=== PATIENT | female | born 1980 ===

== ENCOUNTER 2016-09-24 15:14 | Emergency (ER) | payer OTHER ==
[~2016-09-24] VITALS: Ht 154.9 cm; Wt 76.1 kg
[2016-09-24 15:18] VITALS: Ht 154.9 cm; Wt 76.1 kg
[2016-09-24 17:05] LABS: URINE BLOOD (Dip) POC 2+ (NEGATIVE)
--- NOTE | 2016-09-24 18:09 | ERD ---
ER Documentation Chief Complaint Date/Time DATE: 09/24/16 TIME: 18:04 Chief Complaint VAGINAL DISCHARGE,SMELLY X 3 WEEKS, PELVIC PAIN HPI This is a 36-year-old female who presents to the emergency department today complaining of vaginal discharge that is foul-smelling. The past 3 weeks as well as pelvic pain. Patient states she has not been sexually active because she has pain with intercourse. She has not taken any medication. States she tried to get referral to an DIRECTOR OF LEARNING but her insurance has changed and she has not been able to see one. States she has had intermittent vaginal bleeding. Denies any fevers or chills. ROS All systems reviewed and are negative except as per history of present illness. Medications Home Meds Active Scripts Acetaminophen* (Tylophen*) 500 Mg Capsule, 1 CAP PO Q6H Y for PAIN AND OR ELEVATED TEMP, #30 CAP Prov:DIDIER PATELC 09/24/16 Ibuprofen* (Motrin*) 600 Mg Tab, 600 MG PO Q6, #30 TAB Prov:DIDIER PATEL PA-C 09/24/16 Metronidazole* (Flagyl*) 500 Mg Tablet, 500 MG PO BID for 7 Days, TAB Prov:DIDIER PATEL PA-C 09/24/16 Cephalexin* (Keflex*) 500 Mg Capsule, 500 MG PO QID for 7 Days, CAP Prov:DIDIER PATEL PA-C 09/24/16 Allergies Allergies: Coded Allergies: No Known Allergy (Unverified , 09/24/16) PMhx/Soc Medical and Surgical Hx: pt denies Medical Hx, pt denies Surgical Hx Hx Alcohol Use: No Hx Substance Use: No Hx Tobacco Use: No Physical Exam Vitals Vital Signs Date Time Temp Pulse Resp B/P Pulse Ox O2 Delivery O2 Flow Rate FiO2 09/24/16 15:18 98.1 91 20 101/56 99 Physical Exam Const: NAD Head: Atraumatic Eyes: Normal Conjunctiva ENT: Normal External Ears, Nose and Mouth. Neck: Full range of motion..~ No meningismus. Resp: Clear to auscultation bilaterally Cardio: Regular rate and rhythm, no murmurs Abd: Soft, suprapubic tenderness non distended. Normal bowel sounds. No right lower quadrant pain. No tenderness at McBurney's. : Vaginal speculum exam shows evidence of discharge. No gross bleeding. No cervical motion tenderness. No vesicles or masses or lesions Skin: No petechiae or rashes Back: No midline or flank tenderness Ext: No cyanosis, or edema Neur: Awake and alert Psych: Normal Mood and Affect Results 24 hrs Laboratory Tests Test 09/24/16 17:05 Bedside Urine Blood 2+ Bedside Urine Glucose (UA) Negative Bedside Urine Ketones (LAB) Negative Bedside Urine Leukocyte Esterase (L 2+ Bedside Urine Nitrite (LAB) Negative Bedside Urine Protein (LAB) Negative Bedside Urine pH (LAB) 7.0 DIAGNOSTIC IMAGING REPORT Patient: MER ESCOBAR : 1980 Age: 36 Sex: F MR #: [id number] DOS: 09/24/16 0000 Ordering MD: DIDIER PATEL PA-C Location: [facility] Room/Bed: PROCEDURE: US Pelvis. CLINICAL INDICATION: Pelvic pain. TECHNIQUE: The pelvis was evaluated with transabdominal sonography in the axial and sagittal planes. COMPARISON: No prior study is available for comparison. FINDINGS: Uterus: 8.8 x 4.4 x 5.3 cm. Endometrium: 9.6 mm. Right ovary: 4.6 x 2.8 x 2.8 cm. Left ovary: 3.1 x 2.2 x 2.7 cm. Uterine masses: None. Ovarian masses: None. Color Doppler and pulsed Doppler sonography demonstrate normal flow to the ovaries. Other pelvic masses: None. Free fluid: None. IMPRESSION: 1. Normal pelvic ultrasound. RPTAT: QQ .Alvarez Rich MD, MD Date Time Electronically viewed and signed by .Alvarez Rich MD, on 09/24/2016 18:34 .R/ CC: DIDIER PATEL PA-C RUN DATE: 09/24/16 [facility] PAGE 1 RUN TIME: [id number] [place] [address] Bong Swartz Director KHANH#: [id number] Name: MER ESCOBAR Age/Sex: 36/F Attend Dr: ESTELLE LEIJA MD Acct: [id number] MR# : [id number] : 1980 Location: [facility] Admit: 09/24/16 Specimen: [id number] Status: Complete Anika: 09/24/16 Rcvd: 09/24 Source: VAGINAL DI Sp Descrip: Procedure Result Microbiology WET MOUNT Final WHITE BLOOD CELLS 3+ RED BLOOD CELLS RARE BACTERIA 3+ EPITHELIAL CELLS 3+ MYCELIA NONE SEEN YEAST NONE SEEN HYPHAE NONE SEEN CLUE CELLS CLUE CELLS SEEN MOTILE TRICHOMONAS NO MOTILE TRICHOMONAS SEEN ................................................................................ ............ Flags: Critical Hi = *H Critical Lo = *L Microbiology Abnormal = * Abnormal Hi = H Abnormal Lo = L Blood Bank Abnormal = * Susceptability Flags: S = Sensitive R = Resistant I = Intermediate END OF REPORT Procedures/MDM This 36-year-old female who presents to the emergency department today complaint of pelvic pain and foul-smelling vaginal discharge and vaginal bleeding. On physical exam patient had some suprapubic tenderness and therefore did obtain a UA and urine . Also obtained an ultrasound and did a pelvic exam. Patient refused laboratory work UA shows 2+ leukocyte esterase and 2+ blood. Negative nitrites. I will treat the patient per urinary tract infection. test is negative. Low suspicion for ectopic , tubo-ovarian abscess, ovarian torsion. Ultrasound shows normal pelvic ultrasound. There is no free fluid. There is no ovarian or uterine masses. I did do a wet mount patient's pelvic exam that shows clue cells. No evidence of Trichomonas. She'll be given a perception for Keflex and metronidazole treat urinary tract infection and BV. I cannont say for certain why patient has some intermittent vaginal bleeding. Explained this to the patient and instructed her to follow up with her DIRECTOR OF LEARNING. Her ultrasound was negative. Patient refused laboratory work. I explained this to her. She is afebrile and otherwise well appearing. Low suspicion for PID however I did send urine for gonorrhea and chlamydia. Patient has no right lower quadrant pain and no left lower quadrant pain and I have low suspicion for any acute surgical abdomen. At this time the patient is stable for discharge and outpatient management. Patient should follow up with their PCP in the next 1-2 days. They may return to the emergency department sooner for any persistent or worsening of symptoms. Patient understood and agreed with the plan. Departure Diagnosis: Primary Impression: Bacterial vaginosis Additional Impression: UTI (urinary tract infection) Urinary tract infection type: site unspecified Hematuria presence: with hematuria Qualified Code: N39.0 - Urinary tract infection with hematuria, site unspecified Condition: DIDIER Mays PA-C Sep 24, 2016 18:09
--- NOTE | 2016-09-24 18:34 | RADRPT ---
PROCEDURE: US Pelvis. CLINICAL INDICATION: Pelvic pain. TECHNIQUE: The pelvis was evaluated with transabdominal sonography in the axial and sagittal plane s. COMPARISON: No prior study is available for comparison. FINDINGS: Uterus: 8.8 x 4.4 x 5.3 cm. Endometrium: 9.6 mm. Right ovary: 4.6 x 2.8 x 2.8 cm. Left ovary: 3.1 x 2.2 x 2.7 cm. Uterine masses: None. Ovarian masses: None. Color Doppler and pulsed Doppler sonography demonstrate normal flow to the ova bella. Other pelvic masses: None. Free fluid: None. IMPRESSION: 1. Normal pelvic ultrasound. RPTAT: QQ .Alvarez Rich MD, MD Date Time Electronically viewed and signed by .Alvarez Rich MD, on 09/24/2016 18:34 .R/
[2016-09-24] MEDS ORDERED: CEPH-443 PO (19:04)
[2016-09-24] MEDS ORDERED: METR500T PO (19:06)
[2016-09-24] MEDS ORDERED: IBUP-1542 PO (19:06)
[2016-09-24] MEDS ORDERED: ACET500C5 PO (19:07)
== END 2016-09-24 19:20 | disposition home or self-care (01) ==
LOC: FTE 15:14
DX: N76.0 Acute vaginitis (principal); N39.0 Urinary tract infection, site not specified; R10.2 Pelvic and perineal pain
CPT/HCPCS: 76856; 81003; 87210; 87591; Z7502